=== PATIENT | female | born 1950 | race Hispanic/Latino ===

== ENCOUNTER → 2023-12-02 | Day surgery (SDC) | payer MEDICARE ==
[2023-11-30 11:05] LABS: BASOPHILS % 0.5 % (0.0-1.0); EOSINOPHILS # (AUTO) 0.2 (0.0-0.4); EOSINOPHILS % 2.1 % (0.0-6.0); HEMATOCRIT 39.1 % (34.2-44.1); HEMOGLOBIN 13.2 g/dL (12.0-16.0); LYMPHOCYTES # (AUTO) 2.2 (1.0-3.2); LYMPHOCYTES % 29.2 % (18.0-39.1); MEAN CORPUSCULAR HEMOGLOBIN 30.8 pg (28-32); MEAN CORPUSCULAR HGB CONC 33.8 g/dL (31-35); MEAN CORPUSCULAR VOLUME 91.1 fL (81-99); MONOCYTES # (AUTO) 0.5 (0.2-0.8); MONOCYTES % 5.9 % (4.4-11.3); NEUTROPHILS # (AUTO) 4.8 (2.1-6.9); PLATELET COUNT 332 x10e3/uL (140-360); RED BLOOD COUNT 4.29 x10e6/uL (3.6-5.1); WHITE BLOOD COUNT 7.68 x10e3/uL (4.8-10.8)
[2023-11-30 11:15] LABS: INR 1.55; PROTHROMBIN TIME 18.8 seconds (11.9-14.5)
[2023-11-30 11:16] LABS: PARTIAL THROMBOPLASTIN TIME 39.1 seconds (23.8-35.5)
[2023-11-30 11:24] LABS: ANION GAP 16.3 mmol/L (8-16); CALCIUM 10.3 mg/dL (8.4-10.2); CHOL/HDL RATIO 5.1 (3.0-3.6); CREATININE, SERUM 0.99 mg/dL (0.57-1.11); POTASSIUM 4.3 mmol/L (3.5-5.1)
[2023-12-02] VITALS (8 sets, daily range): BP systolic 126–144; BP diastolic 64–81; PULSE 68–79; RESP 12–14; TEMP 97; O2SAT 97–98
[~2023-12-02] VITALS: Ht 154.9 cm; Wt 56.7 kg
[~2023-12-02] MED LIST: FENTANYL CITRATE/PF 100MCG/2 ML INJ ONE; HEPARIN SOD (PORCINE) 1000 UNIT/ML 30ML ONE; HEPARIN SOD/SOD CHLORIDE 2,000 ML ONE; ICY HOT 16% POW49 GM; IOPAMIDOL 370 MG/ML 100 ML INFUS..BTL INJ ONE; LASIX20 MG PO; LIDOCAINE HCL 2% LOCAL 20 ML VIAL ONE; LIPITOR20 MG PO; LISINOPRIL20 MG PO; LORATADINE10 MG PO; MECLIZINE HCL12.5 MG PO; METFORMIN HCL500 MG PO; MIDAZOLAM HCL 2 MG/2 ML VIAL ONE; NITROGLYCERIN/D5W 200 MCG/ML 250 ML ONE; PANTOPRAZOLE SO40 MG PO; SODIUM CHLORIDE 0.9% 1000ML 1,000 ML ONE; SODIUM CHLORIDE 0.9% 500ML 500 ML ONE; TYLENOL325 MG PO; VERAPAMIL HCL 2.5 MG/ML 2 ML VIAL ONE; XARELTO20 MG PO
== END | disposition home or self-care (01) ==
LOC: CATH LAB 06:20
PROVIDERS: ATTEND Internal Medicine Cardiovascular Disease
DX: I05.0 Rheumatic mitral stenosis (principal); I25.10 Atherosclerotic heart disease of native coronary artery without angina pectoris; I48.91 Unspecified atrial fibrillation; Z01.810 Encounter for preprocedural cardiovascular examination; Z01.812 Encounter for preprocedural laboratory examination; Z01.818 Encounter for other preprocedural examination; Z79.84 Long term (current) use of oral hypoglycemic drugs; Z79.02 Long term (current) use of antithrombotics/antiplatelets; Z79.899 Other long term (current) drug therapy
CPT/HCPCS: 36415 ×2; 71046; 80048; 80061; 82948; 85025; 85610; 85730; 93005; 93460; C1760; C1769 ×2; C1887; C1894; J2001; J2250; J3010; J7030; J7040; Q9967; 99152; 99153; J1644